=== PATIENT | female | born 1995 | race Caucasian/White ===

== ENCOUNTER 2016-10-06 20:33 | Emergency (ER) | payer MEDICAID ==
[~2016-10-06] VITALS: Ht 152.4 cm; Wt 57.7 kg
[~2016-10-06 20:33] MED LIST: CLARITIN 1010 MG/TAB PO
[2016-10-06 20:37] VITALS: BP 108/67; TEMP 97.4
[2016-10-06] MEDS ORDERED: AMOXICILLIN 50500 MG PO (20:40)
[2016-10-06] MEDS ORDERED: EXCEDRIN1 TAB PO (20:41)
[2016-10-06] MEDS ORDERED: DOXYCYCLINE 10100 MG PO (22:11)
[2016-10-06] MEDS ORDERED: PREDNISONE20 MG PO (22:11)
[2016-10-06 22:27] VITALS: PULSE 70
== END 2016-10-06 22:27 | disposition home or self-care (01) ==
LOC: COL.ER 20:33
DX: L50.0 Allergic urticaria (principal)
CPT/HCPCS: J7512

== ENCOUNTER 2017-02-13 23:15 | Emergency (ER) | payer MEDICAID ==
[~2017-02-13] VITALS: Ht 154.9 cm; Wt 56.8 kg
[~2017-02-13 23:15] MED LIST changes: +AMOXICILLIN 50500 MG PO; +DOXYCYCLINE 10100 MG PO; +EXCEDRIN1 TAB PO; +PREDNISONE20 MG PO
[2017-02-13 23:18] VITALS: TEMP 97.9
[2017-02-14 00:20] VITALS: BP 111/59; PULSE 68
== END 2017-02-14 00:21 | disposition home or self-care (01) ==
LOC: COL.ER 23:15
DX: S30.0XXA Contusion of lower back and pelvis, initial encounter (principal); F17.210 Nicotine dependence, cigarettes, uncomplicated; V19.9XXA Pedal cyclist (driver) (passenger) injured in unspecified traffic accident, initial encounter

== ENCOUNTER 2019-02-11 11:07 | Emergency (ER) | payer MEDICAID ==
[~2019-02-11] VITALS: Ht 154.9 cm; Wt 59.1 kg
[2019-02-11 11:13] VITALS: BP 120/73; PULSE 99; TEMP 98.7
[2019-02-11] MEDS ORDERED: ZOVIRAX800 MG PO ×4 (11:53→12:23)
[2019-02-11] MEDS ORDERED: ZOVIRAX400 MG PO (13:03)
== END 2019-02-11 12:56 | disposition home or self-care (01) ==
LOC: COL.ER 11:07
DX: N94.89 Other specified conditions associated with female genital organs and menstrual cycle (principal); F17.210 Nicotine dependence, cigarettes, uncomplicated; Z32.01 Encounter for pregnancy test, result positive; Z88.0 Allergy status to penicillin

== ENCOUNTER 2019-10-11 06:24 | Inpatient (IN) | payer MEDICAID ==
[~2019-10-11] VITALS: Ht 154.9 cm; Wt 80.9 kg
[2019-10-11] VITALS (26 sets, daily range): BP systolic 86–131; BP diastolic 50–79; PULSE 73–104; TEMP 97.5–98.1
[~2019-10-11 06:24] MED LIST changes: +ZOVIRAX400 MG PO; +ZOVIRAX800 MG PO
--- NOTE | 2019-10-11 07:20 | NUR ---
Pt arrives on unit ambulatory with mother, mother's boyfriend, and father. Changed into a clean gown. Urine drug screen obtained. EFM and toco applied. VSS. IV started in LH. Labs obtained. LR infusing. Admission assessment completed. Denies vaginal bleeding, LOF and regular contractions. Reports GFM. Consents signed. Pt oriented to room. Bed locked in low position. Call light within reach. No quesitons or concerns at this time.
[2019-10-11] MEDS ORDERED: PRENATAL MVI (07:28)
[2019-10-11 08:06] LABS: BASO % 0.3 % (0.0-2.0); EOS # 0.2 (0.0-0.7); EOS % 2.1 % (0-4.0); GRAN # 6.5 (1.4-6.5); GRAN % 70.7 % (42.2-75.2); HEMATOCRIT 35.2 % (37.0-47.0); HEMOGLOBIN 11.9 g/dl (12.5-16.0); LYMPH # 1.6 (1.2-3.4); LYMPH % 17.8 % (20.0-51.0); MEAN CELL VOLUME 89 fl (80.0-100.0); MEAN CORPUSCULAR HEMOGLOBIN 30 pg (27.0-31.0); MEAN CORPUSCULAR HGB CONC 34 g/dl (33.0-37.0); MEAN PLATELET VOLUME 10.8 fl (7.4-10.4); MONO # 0.8 (0.1-0.6); MONO % 8.2 % (1.7-9.3); PLATELET COUNT 243 K/mm3 (130-400); RED BLOOD COUNT 3.94 M/mm3 (4.10-5.30); REDCELL DISTRIBUTION WIDTH-CV 14.2 % (11.5-14.5)
[2019-10-11 08:09] LABS: TRICYCLIC ANTIDEPRESS URINE NEGATIVE
--- NOTE | 2019-10-11 08:35 | NUR ---
Late deceleration noted. Dr. Knight at bedside. SVE per provider unchanged. Pt repostioned LL.
--- NOTE | 2019-10-11 11:25 | NUR ---
Pt at EOB for epidural placement. Difficulty tracing FHR due to maternal position. RN at bedside adjusting monitors. FHR audible.
--- NOTE | 2019-10-11 11:48 | NUR ---
Dougherty catheter placed. Return of clear, yellow urine. SVE per this RN 6/100/0. 1150-Late deceleration noted. Pt feeling urge to push. SVE per this RN C/+1. Dr. Knight notified and requested to unit. 1200-Dr. Knight on unit. Pt prepped for delivery. Begins pushing with pt. 1203- of viable male attended by Dr. Knight. Cord clamped x2 and cut from umbilicus. Infant bulb suctioned and dried. Placed on mother's abdomen. Care of to Cari Limon RN. Apgars 8/9/9. 1206- of placenta. Fundus firm at umbilicus. Bleeding WNL. Pitocin bolus infusing per protocol. Laceration repaired per physician. Pericare provided. Ice pack applied. Pt updated on POC. Safety reviewed. Bed locked in low position. Call light within reach. No questions or concerns at this time.
[2019-10-12 02:30] VITALS: BP 107/60; PULSE 87; TEMP 97.8
[2019-10-12 07:20] VITALS: BP 112/58; PULSE 80; TEMP 97.5
[2019-10-12] MEDS ORDERED: MOTRIN 800800 MG/TAB PO (07:20)
--- NOTE | 2019-10-12 11:23 | NUR ---
Initial visit; Parents thanked Education Teacher for offering congratulations and God' blessings for the of their son. Education Teacher thanked family for choosing [facility].
--- NOTE | 2019-10-12 15:07 | NUR ---
ISIAH terrell responded to a social media marketer consult for the patient due to history of meth use and no custody of first child. ISIAH terrell met with the patient. The patient lives with her father and has other supports. The patient has a car seat, crib and supplies for the baby. The FOB is not involved. The patient does not have custody of her daughter that was born in 2014. However, she is starting to have overnight visits. The patient is on a list for section 8 housing. ISIAH terrell provided [facility] Resource Guide and the patient is aware of the resources available in [place] and reports she has used them in the past. The patient reported to Dr. Reeves that her last meth usage was 01/2019. The patient went to [facility] for substance usage and she reports she graduated from this program. The patient had a negative UDS on 03/2019 and a negative UDS at admission. The patient's nurse reports that Dr. Reeves feels the patient is safe to go home with her baby and the patient was very open about her past drug usage. ISIAH terrell collaborated the above information with the patient's nurse.
[2019-10-12 16:25] VITALS: BP 128/68; PULSE 86; TEMP 98.1
[2019-10-12 21:50] VITALS: BP 112/83; PULSE 92; TEMP 97.9
[2019-10-13 07:23] VITALS: BP 117/64; PULSE 100; TEMP 97.9
--- NOTE | 2019-10-13 14:29 | NUR ---
3318 PT'S FATHER HERE TO TAKE PT AND HOME FOR DISCHARGE. NO QUESTIONS FROM PATIENT AT THIS TIME. RN TO WALK WITH PT TO CAR AND VERIFY INFANT BUCKLED IN FACING REAR OF CAR.
== END 2019-10-13 14:25 | disposition home or self-care (01) | DRG 807 ==
LOC: LDR 06:24 → OB 06:59 → LDR 13:55 → OB 14:00
PROVIDERS: ADMIT Obstetrics & Gynecology
PROC: 10E0XZZ Delivery of Products of Conception, External Approach (ICD-10-PCS; principal; 2019-10-11)
PROC: 10907ZC Drainage of Amniotic Fluid, Therapeutic from Products of Conception, Via Natural or Artificial Opening (ICD-10-PCS; 2019-10-11)
PROC: 0HQ9XZZ Repair Perineum Skin, External Approach (ICD-10-PCS; 2019-10-11)
PROC: 0UQMXZZ Repair Vulva, External Approach (ICD-10-PCS; 2019-10-11)
PROC: 3E033VJ Introduction of Other Hormone into Peripheral Vein, Percutaneous Approach (ICD-10-PCS; 2019-10-11)
DX: O99.02 Anemia complicating childbirth (principal); Z37.0 Single live birth; O99.334 Smoking (tobacco) complicating childbirth; O70.0 First degree perineal laceration during delivery; Z3A.39 39 weeks gestation of pregnancy
CPT/HCPCS: J2590; J7120